=== PATIENT | female | born 1980 | race Caucasian/White ===

== ENCOUNTER 2023-11-25 13:54 | Emergency (ER) | payer OTHER, SELFPAY ==
[2023-11-25 14:00] VITALS: BP 110/81
--- NOTE | 2023-11-25 14:53 | ED.GENMED ---
History of Present Illness
General
Chief Complaint: Wound Check/Suture Removal
Source: patient
Time Seen by Provider: 11/25/23 14:46
Travel History
Have you had any contact with someone who has COVID-19?: No
Do you have any symptoms of coronavirus? Fever > 100 degrees, chills, cough, shortness of breath, sore throat, loss of taste or smell, muscle aches, or headache?: No
History of Present Illness
History of Present Illness:
42-year-old female presenting to the emergency department for evaluation after sustaining a abrasion/injury to her left knee a couple of days ago while at work. Patient states that she went to urgent care as part of a Worker's Comp. evaluation and
states that they put Dermabond over part of the injury to the left knee. Patient noticed a little drainage from the area this morning prompting her to go to another urgent care but states because this was a Worker's Comp. issue that they would not
see her prompting her to come to the ER today. She does note some pain and swelling to the area but is otherwise denying any fevers, chills, rigors or any other concerns. No new injuries. Patient reports she did have an x-ray done as part of her
initial workup at the urgent care which was negative for fracture.
Past History
Past History
ED Past Medical History: None
ED Past Surgical History: None
Social History
Tobacco: Non-smoker
Alcohol: Occasional
Drug: None
Personal: Single
Living: with family
Employment: Employed
Review of Systems
Review of Systems
All Other Systems: ROS reviewed and negative except as documented in HPI and ROS
Phy Exam
Physical Exam
Physical Exam:
GENERAL: Alert , in no apparent distress
EYE: conjunctiva clear
Head: Normocephalic atraumatic
NECK: Supple,
ENT: mmm.
LUNGS: no acute respiratory distress
NEUROLOGICAL: Alert and oriented
SKIN: Warm and dry, scattered abrasions to the anterior portion of the patella. There is a larger abrasion with Dermabond overlying. There is very slight serosanguineous drainage from the proximalmost portion of the Dermabond site but no
purulence or surrounding erythema
MUSCULOSKELETAL: well perfused.
PSYCH: Normal and appropriate interaction.
Scores
Heart Failure Risk
Heart Failure Risk Score: Not Applicable
Heart Score for Chest Pain Patients
STEMI patient?: Not applicable
Withdrawal Assessment of Alcohol
Withdrawal Assessment Completed?: Not applicable
Course
Vital Signs
Initial and Last Documented VS:
Initial Vital Signs
Temp Pulse Resp BP Pulse Ox
99.1 F 90 16 110/81 97
11/25/23 14:00 11/25/23 14:00 11/25/23 14:00 11/25/23 14:00 11/25/23 14:00
Last Documented Vital Signs
Temp Pulse Resp BP Pulse Ox
99.1 F 90 16 110/81 97
11/25/23 14:00 11/25/23 14:00 11/25/23 14:00 11/25/23 14:00 11/25/23 14:00
MDM/Problems Addressed
Differential Diagnosis Includes:
Abrasion, seroma, abscess, cellulitis
MDM/Problems Addressed:
42-year-old female presenting to the emergency department to be evaluated after sustaining left knee injury 2 days ago and an accidental fall. Patient is in no acute distress. Based off exam I am not concerned for any infection at this time.
Patient has a follow-up already scheduled with the urgent care again this coming Sunday. Advised on wound care and return precautions to the ER but otherwise stable for discharge home.
*Pulse Oximetry
Patient hypoxic: no
*Critical Care Note
Total Time (30-74mins, 75-104mins- exclusive of procedures): Not Applicable
ED Attending Note
-
Portions of this chart may have been created with voice recognition software.� Occasional wrong word or��sound alike� substitutions may have occurred due to the inherent limitations of voice recognition software.
Discharge Plan
Departure
Patient Disposition: Home (Routine Discharge)
Date of Disposition: 11/25/23
Time of Disposition: 14:53
Patient with high blood pressure during this ER visit?: No
Discharge Problem:
Visit for wound check, Abrasion of knee, left
Instructions: Wound Care (DC)
Referrals:
UNKNOWN - PT DOES,NOT KNOW [Family Provider] -
Interventions
Interventions:
*Risk Screen - Suicide Last Done: 11/25/23 14:21
*General Assessment Last Done: 11/25/23 14:22
*Neglect/Abuse Screening Last Done: 11/25/23 14:21
ED- Fall Risk Assessment Last Done: 11/25/23 14:22
*ED COVID-19 Vaccine History Last Done: 11/25/23 14:22
*Nursing Disposition Last Done: 11/25/23 14:57
ED-Skin Assessment Last Done: 11/25/23 14:21
Discharge Date and Time
Discharge Date/Time: 11/25/23 14:57
Print Language: BENGALI
== END 2023-11-25 14:57 | disposition home or self-care (01) ==
LOC: EMR 13:54
PROVIDERS: EMERGENCY PHYSICIAN Emergency Medicine
DX: Z48.00 Encounter for change or removal of nonsurgical wound dressing (principal); S80.212A Abrasion, left knee, initial encounter; X58.XXXA Exposure to other specified factors, initial encounter
CPT/HCPCS: 99282